=== PATIENT | male | born 1985 | race Caucasian/White ===

== ENCOUNTER 2016-11-01 21:16 | Emergency (ER) | payer SELFPAY ==
[2016-11-01 23:36] VITALS: BP 128/74
== END 2016-11-01 23:36 | disposition home or self-care (01) ==
LOC: ED 21:16
DX: S50.02XA Contusion of left elbow, initial encounter (principal); M25.512 Pain in left shoulder; W18.30XA Fall on same level, unspecified, initial encounter; Y93.89 Activity, other specified; Y99.8 Other external cause status; Y92.89 Other specified places as the place of occurrence of the external cause
CPT/HCPCS: Q0162